=== PATIENT | female | born 1985 | race Two or more races ===

== ENCOUNTER 2017-03-24 11:23 | Emergency (ER) | payer MEDICAID ==
[~2017-03-24] VITALS: Ht 180.3 cm; Wt 90.5 kg
[2017-03-24] MEDS ORDERED: ACETAMINOPHEN 325 MG TABLET PO ONE (12:00)
[2017-03-24 12:07] LABS: APPEARANCE,URINE CLOUDY (CLEAR); GLUCOSE, URINE (UA) NEGATIVE (NEGATIVE); KETONES,URINE NEGATIVE (NEGATIVE); LEUKOCYTE ESTERASE ,URINE LARGE (NEGATIVE); OCCULT BLOOD,URINE NEGATIVE (NEGATIVE); PH,URINE 7.5 (5.0-8.0); PROTEIN,URINE NEGATIVE (NEGATIVE)
[2017-03-24 12:14] LABS: ADD UA MICROSCOPIC YES
[2017-03-24 12:30] LABS: RBC,URINE None Seen /HPF (0-2); SQUAMOUS EPITHELIAL CELL,UR Few /LPF (None Seen); WBC,URINE 51-100 /HPF (0-5)
[2017-03-24] MEDS ORDERED: SULFAMETHOX/TRIMETH DS 800-160 MG/TABLET PO ONE (12:30)
[2017-03-24] MEDS ORDERED: MetroNIDAZOLE 250 MG TABLET PO ONE (12:30)
[2017-03-24 12:48] VITALS: BP 139/81
== END 2017-03-24 12:51 | disposition home or self-care (01) ==
LOC: EMS 11:25
DX: N39.0 Urinary tract infection, site not specified (principal); N76.0 Acute vaginitis; B96.89 Other specified bacterial agents as the cause of diseases classified elsewhere
CPT/HCPCS: 81025; 87086; 99284